=== PATIENT | male | born 1960 | race Caucasian/White ===

== ENCOUNTER 2020-04-04 13:18 | Emergency (ER) | payer BC ==
[~2020-04-04] VITALS: Ht 167.6 cm; Wt 86.2 kg
[2020-04-04] MEDS ORDERED: SERT100 PO (13:25)
[2020-04-04] MEDS ORDERED: TRAZ50 PO (13:25)
[2020-04-04] MEDS ORDERED: LIPITOR10 MG (13:26)
[2020-04-04] MEDS ORDERED: LEVSOD100 PO (13:26)
[2020-04-04] MEDS ORDERED: IBUP800 PO (15:32)
== END 2020-04-04 15:40 | disposition home or self-care (01) ==
LOC: ER 13:18
DX: S01.312A Laceration without foreign body of left ear, initial encounter (principal); Z23 Encounter for immunization; Z79.899 Other long term (current) drug therapy; W01.198A Fall on same level from slipping, tripping and stumbling with subsequent striking against other object, initial encounter
CPT/HCPCS: 12011; 90471; 90714; 99282-25